=== PATIENT | female | born 1995 | race Caucasian/White ===

== ENCOUNTER 2017-03-21 19:38 | Outpatient (CLI) | payer OTHER ==
--- NOTE | 2017-03-21 21:29 | Ultrasound Preliminary Report ---
Exam: US Pelvic w/Transvaginal IMPRESSION: Normal pelvic ultrasound. No ovarian cysts. No free fluid in the pelvis. Blood flow prese nt in both ovaries on Doppler. [facility] SITE ID: [id number]
--- NOTE | 2017-03-21 21:31 | Ultrasound Report ---
EXAM: PELVIC ULTRASOUND EXAM DATE: 03/21/2017 09:02 PM. CLINICAL HISTORY: R PELVIC PX HX OVARIAN CYST, SUSPECT RUPTURE. COMPARISON: None. TECHNIQUE: Realtime transabdominal pelvic scan performed to identify the uterus and adnexa and as an overview of other pelvic structures, followed by transvaginal scan to provide greater detail of the u terus and adnexa, with static image documentation. FINDINGS: Uterus: 5.3 x 2.4 x 3.7 cm, volume 25 cc. Anteverted position. Normal overall size and echotexture. Masses: None. Endometrium: 5 mm. Normal. Cervix: Unremarkable. Right Ovary: 3.2 x 1.7 x 2.4 cm, volume 7 cc. Normal echotexture and blood flow. Left Ovary: 2.8 x 2.2 x 2.0 cm, volume 6.7 cc. Normal echotexture and blood flow. Free Fluid: None. Other: None. IMPRESSION: Normal pelvic ultrasound. No ovarian cysts. No free fluid in the pelvis. Blood flow prese nt in both ovaries on Doppler. [facility] Referring Provider Line: [phone] SITE ID: [id number]
== END 2017-03-21 19:39 | disposition home or self-care (01) ==
LOC: DI 19:38
PROVIDERS: ATTEND Physician Assistant
DX: R10.2 Pelvic and perineal pain (principal)
CPT/HCPCS: 76830; 76856

== ENCOUNTER 2017-06-22 08:24 | Emergency (ER) | payer OTHER ==
--- NOTE | 2017-06-22 08:40 | ED Physician Documentation ---
PD HPI FEMALE - Stated complaint Stated Complaint: RT SIDE PX - Chief complaint Chief Complaint: Abd Pain - History obtained from History obtained from: Patient - History of Present Illness Timing - onset: Today Timing - duration: Hours Timing - details: Abrupt onset, Still present Associated symptoms: Vaginal discharge (she says she has common mild discharge, no change in it.). No: Fever, Back pain, Vaginal bleeding, Genital sore/lesion Contributing factors: No: Similar symptoms before: Diagnosis (ovarian pains and ovarian cysts in the past , with PCOS.) Recently seen: Not recently seen Review of Systems Constitutional: denies: Fever, Chills Throat: denies: Sore throat Cardiac: denies: Chest pain / pressure Respiratory: denies: Dyspnea GI: denies: Nausea, Vomiting, Diarrhea : reports: Discharge (commonly mild, no recent change in it), LMP (couple weeks ago), Irregular menses (intermediate card tender). 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 : None - Present Medications Home Medications: Ambulatory Orders Medication Instructions Recorded Confirmed Naproxen [Naprosyn] 500 mg PO BID PRN #20 tablet 06/22/17 Tramadol HCl 50 mg PO Q6H PRN #15 tablet 06/22/17 - Allergies Allergies/Adverse Reactions: Allergies Allergy/AdvReac Type Severity Reaction Status Date / Time Iodinated Contrast- Oral and Allergy Unknown Verified 06/22/17 08:38 IV Dye iodine Allergy Unknown Verified 06/22/17 08:38 latex Allergy Unknown Verified 06/22/17 08:38 Sulfa (Sulfonamide Allergy Unknown Verified 06/22/17 08:38 Antibiotics) PD ED PE NORMAL - Vitals Vital signs reviewed: Yes - General General: Alert and oriented X 3, No acute distress, Well developed/nourished - HEENT HEENT: Pharynx benign - Neck Neck: Supple, no meningeal sign, No adenopathy - Cardiac Cardiac: RRR, No murmur - Respiratory Respiratory: Clear bilaterally - Abdomen Abdomen: Normal bowel sounds, Soft, Non distended, No organomegaly, Other (some tenderness RLQ without guarding, percussion nor rebound tenderness. ) - Female Female : Deferred - Rectal Rectal: Deferred - Back Back: No CVA TTP - Derm Derm: Normal color, Warm and dry, No rash - Neuro Neuro: Alert and oriented X 3, No motor deficit, Normal speech Results - Vitals Vitals: Vital Signs - 24 hr 06/22/17 06/22/17 10:06 10:58 Heart Rate 56 L 72 Respiratory 16 15 Rate Blood Pressure 100/66 104/72 O2 Saturation 100 99 Oxygen O2 Source Room air - Labs Labs: Laboratory Tests 06/22/17 06/22/17 06/22/17 08:35 09:15 09:15 WBC 7.3 RBC 5.10 Hgb 14.3 Hct 42.3 MCV 82.9 MCH 28.1 MCHC 33.9 RDW 12.7 Plt Count 264 MPV 8.0 Neut # 4.5 Lymph # 2.2 [place] # 0.4 Eos # 0.1 Baso # 0.1 Absolute Nucleated RBC 0.00 Nucleated RBCs 0.0 Sodium 139 Potassium 3.9 Chloride 106 Carbon Dioxide 26 Anion Gap 7.0 BUN 25 H Creatinine 0.9 Estimated GFR (MDRD) 80 L Glucose 101 H Calcium 9.6 Total Bilirubin 0.5 AST 23 ALT 27 Alkaline Phosphatase 59 Total Protein 8.3 H Albumin 4.4 Globulin 3.9 Albumin/Globulin Ratio 1.1 Lipase 29 Urine Color YELLOW Urine Clarity CLEAR Urine pH 6.0 Ur Specific [place] 1.025 Urine Protein NEGATIVE Urine Glucose (UA) NEGATIVE Urine Ketones NEGATIVE Urine Occult Blood NEGATIVE Urine Nitrite NEGATIVE Urine Bilirubin NEGATIVE Urine Urobilinogen 0.2 (NORMAL) Ur Leukocyte Esterase NEGATIVE Ur Microscopic Review NOT INDICATED Urine Culture Comments NOT INDICATED Urine HCG, Qual NEGATIVE PD MEDICAL DECISION MAKING - ED course Complexity details: reviewed results (U/S showed normal pelvis. WBC and UA are normal. Appendix not visualized on U/S. Talked with patient about watching symptoms for the day vs. further testing such as CT. She says she has had similar pains with ovarian/cysts in the past and feels it is that (ovarian, since no cysts). She would prefer not CT and see how symptoms do for the day. ) , considered differential, d/w patient Departure - Departure Disposition: 01 Home, Self Care Clinical Impression: Right lower quadrant abdominal pain Condition: Stable Record reviewed to determine appropriate education?: Yes Instructions: ED Abdominal Pain Appendx Poss Follow-Up: Lorie Thornton ARNP [Primary Care Provider] - Prescriptions: Naproxen [Naprosyn] 500 mg PO BID PRN #20 tablet PRN Reason: Pain Tramadol HCl 50 mg PO Q6H PRN #15 tablet PRN Reason: Pain Comments: Drink lots of fluids. Naproxen 500 mg twice daily for the next 5 or 6 days and then as needed. In addition to that, you can use Tylenol or tramadol if needed for pain. At this point your labs are looking okay so this may be ovarian pain without cysts. However if you have increasing pain, fevers, nausea, diarrhea or bloody stool or other concerns then it may be an early presentation of something more yet to develop. Return if worsening symptoms. Discharge Date/Time: 06/22/17 11:03
[2017-06-22 08:46] LABS: BILIRUBIN,URINE NEGATIVE (NEGATIVE)
[2017-06-22 08:48] LABS: HCG UR QUAL NEGATIVE; UA CHARGE (STRIP ONLY) YES; UR CULTURE IF IND NOT INDICATED
[2017-06-22] MEDS ORDERED: ONDANSETRON ODT 4 MG TABLET TL STA (08:56)
[2017-06-22] MEDS ORDERED: HYDROcod/ACETAM 5/325 MG TABLET PO STA (08:56)
[2017-06-22] MEDS ORDERED: IBUPROFEN 600 MG TABLET PO STA (08:56)
[2017-06-22] MEDS ORDERED: HYDROcod/ACETAM 5/325 MG TABLET ONE (09:10)
[2017-06-22] MEDS ORDERED: IBUPROFEN 600 MG TABLET PO ONE (09:11)
[2017-06-22] MEDS ORDERED: ONDANSETRON ODT 4 MG TABLET ONE (09:11)
[2017-06-22 09:37] LABS: BASOPHILS # (AUTO) 0.1 10^3/uL (0.0-0.1); BASOPHILS % (AUTO) 0.8 %; EOSINOPHILS # (AUTO) 0.1 10^3/uL (0.0-0.7); EOSINOPHILS % (AUTO) 1.8 %; HCT - HEMATOCRIT 42.3 % (37.0-47.0); HGB - HEMOGLOBIN 14.3 g/dL (12.0-16.0); LYMPHOCYTES # (AUTO) 2.2 10^3/uL (1.5-3.5); LYMPHOCYTES % (AUTO) 29.9 %; MEAN CORPUSCULAR HEMOGLOBIN 28.1 pg (27.0-31.0); MEAN CORPUSCULAR HGB CONC 33.9 g/dL (32.0-36.0); MEAN CORPUSCULAR VOLUME 82.9 fL (81.0-99.0); MONOCYTES # (AUTO) 0.4 10^3/uL (0.0-1.0); NEUTROPHILS # (AUTO) 4.5 10^3/uL (1.5-6.6); NEUTROPHILS % (AUTO) 61.5 %; RED CELL DISTRIBUTION WIDTH 12.7 % (12.0-15.0); UNCORRECTED WHITE BLOOD COUNT 7.3 x10^3/uL; WHITE BLOOD COUNT 7.3 x10^3/uL (4.8-10.8)
[2017-06-22 09:45] LABS: ALBUMIN/GLOBULIN RATIO 1.1 (1.0-2.2); BILIRUBIN,TOTAL 0.5 mg/dL (0.2-1.0); CALCIUM 9.6 mg/dL (8.5-10.3); CREATININE 0.9 mg/dL (0.4-1.0); POTASSIUM 3.9 mmol/L (3.5-5.0); TOTAL PROTEIN 8.3 g/dL (6.7-8.2)
--- NOTE | 2017-06-22 10:18 | Ultrasound Preliminary Report ---
Exam: US Abdomen Limited IMPRESSION: Nonvisualized appendix. No focal abnormality demonstrated. [facility] SITE ID: [id number]
--- NOTE | 2017-06-22 10:20 | Ultrasound Preliminary Report ---
Exam: US Pel Non OB w/TV + Dop Ltd IMPRESSION: Normal pelvic ultrasound. [facility] SITE ID: [id number]
--- NOTE | 2017-06-22 10:21 | Ultrasound Report ---
EXAM: Limited abdominal/pelvic ultrasound EXAM DATE: 06/22/2017 10:13 AM. CLINICAL HISTORY: RLQ pain onset overnight; ? eval appendix. COMPARISON: None available. TECHNIQUE: Real-time scanning was performed of the right lower quadrant with static images obtained. FINDINGS: APPENDIX: Not seen ASSOCIATED FINDINGS: Lymph Nodes Seen: No Free Fluid/Complex Fluid Seen: No Thickened Bowel Wall Seen: No Other: None. IMPRESSION: Nonvisualized appendix. No focal abnormality demonstrated. [facility] Referring Provider Line: [phone] SITE ID: [id number]
--- NOTE | 2017-06-22 10:22 | Ultrasound Report ---
EXAM: PELVIC ULTRASOUND EXAM DATE: 06/22/2017 10:13 AM. CLINICAL HISTORY: RLQ abd pain overnight, abrupt onset. COMPARISON: 03/21/2017. TECHNIQUE: Realtime transabdominal pelvic scan performed to identify the uterus and adnexa and as an overview of other pelvic structures, followed by transvaginal scan to provide greater detail of the u terus and adnexa, with static image documentation. FINDINGS: Uterus: 5.2 x 2.5 x 3.2 cm, volume 22 cc. Retroverted position. Normal overall size and echotexture. Masses: None. Endometrium: 2 mm. Normal. Cervix: Unremarkable. Right Ovary: 3.6 x 2.3 x 2.4 cm, volume 10.4 cc. Normal echotexture and blood flow. Left Ovary: 3.8 x 1.9 x 2.5 cm, volume 9.4 cc. Normal echotexture and blood flow. Free Fluid: None. Other: None. IMPRESSION: Normal pelvic ultrasound. [facility] Referring Provider Line: [phone] SITE ID: [id number]
[2017-06-22 10:59] VITALS: BP 104/72
== END 2017-06-22 11:03 | disposition home or self-care (01) ==
LOC: ED 08:24
DX: R10.31 Right lower quadrant pain (principal)
CPT/HCPCS: 36415; 76705; 76830; 76856; 80053; 81003; 81025; 83690; 85025; 93976; 99283; A9270; Q0162; 81001; 87086

== ENCOUNTER 2017-11-18 22:37 | Emergency (ER) | payer OTHER ==
[2017-11-18 23:01] LABS: BILIRUBIN,URINE NEGATIVE (NEGATIVE); GLUCOSE, URINE (UA) NEGATIVE (NEGATIVE); KETONES,URINE (UA) NEGATIVE (NEGATIVE); LEUKOCYTE ESTERASE, URINE TRACE (NEGATIVE); NITRITE,URINE NEGATIVE (NEGATIVE); OCCULT BLOOD,URINE LARGE (NEGATIVE); PROTEIN,URINE TRACE mg/dL (NEGATIVE); UROBILINOGEN,URINE 0.2 (NORMAL) E.U./dL (NORMAL)
[2017-11-18 23:05] LABS: CLARITY,URINE BLOODY (CLEAR); HCG UR QUAL POSITIVE
[2017-11-18 23:11] LABS: WBC CLUMPS,URINE PRESENT
[2017-11-18 23:12] LABS: BACTERIA,URINE Few /HPF (None Seen); RBC,URINE TNTC /HPF (0-5); SQUAMOUS EPITHELIAL CELL,UR FEW Squamous (<= Few)
[2017-11-18 23:43] LABS: BASOPHILS # (AUTO) 0.1 10^3/uL (0.0-0.1); BASOPHILS % (AUTO) 0.7 %; EOSINOPHILS # (AUTO) 0.2 10^3/uL (0.0-0.7); EOSINOPHILS % (AUTO) 1.6 %; HGB - HEMOGLOBIN 15.3 g/dL (12.0-16.0); LYMPHOCYTES # (AUTO) 3.4 10^3/uL (1.5-3.5); MEAN CORPUSCULAR HEMOGLOBIN 27.8 pg (27.0-31.0); MEAN CORPUSCULAR HGB CONC 33.8 g/dL (32.0-36.0); MEAN CORPUSCULAR VOLUME 82.2 fL (81.0-99.0); MEAN PLATELET VOLUME 7.9 fL (7.9-10.8); MONOCYTES # (AUTO) 0.6 10^3/uL (0.0-1.0); MONOCYTES % (AUTO) 5.6 %; NEUTROPHILS # (AUTO) 6.1 10^3/uL (1.5-6.6); NEUTROPHILS % (AUTO) 59.1 %; PLT - PLATELET COUNT 290 10^3/uL (130-450); RED CELL DISTRIBUTION WIDTH 12.8 % (12.0-15.0); WHITE BLOOD COUNT 10.4 x10^3/uL (4.8-10.8)
[2017-11-18 23:59] LABS: ALBUMIN 4.4 g/dL (3.2-5.5); ALBUMIN/GLOBULIN RATIO 1.1 (1.0-2.2); BILIRUBIN,TOTAL 0.2 mg/dL (0.2-1.0); CALCIUM 9.8 mg/dL (8.5-10.3); CREATININE 0.8 mg/dL (0.4-1.0); TOTAL PROTEIN 8.4 g/dL (6.7-8.2)
--- NOTE | 2017-11-19 00:35 | Ultrasound Report ---
EXAM: FIRST TRIMESTER OBSTETRIC ULTRASOUND (Less than 11 weeks) EXAM DATE: 11/19/2017 12:23 AM. CLINICAL HISTORY: . Vaginal bleeding. LMP: 10/25/2017. COMPARISONS: None. TECHNIQUE: Transabdominal and transvaginal ultrasound examination with static image documentation. CLINICAL DATES: EGA 3 weeks 3 days with BRITANY 08/01/2018 based on LMP. ASSESSMENT: Gestational Sac: Not seen. Endometrial thickness 4 mm. Embryo: CRL not seen. Cardiac activity: Not seen. Yolk sac: Not seen. Amniotic fluid: Not seen. Early placenta: Not seen. Other: None. MATERNAL STRUCTURES: Uterus: Anteverted transabdominal, retroverted transvaginal. Unremarkable. Cervix: Closed. Right Ovary/Adnexa: Unremarkable. The ovary measures 2.4 x 2.7 x 2.2 cm, volume 7.3 cc. Left Ovary/Adnexa: Unremarkable. The ovary measures 3.7 x 1.6 x 2.3 cm, volume 7.0 cc. Free Fluid: None. Other: None. IMPRESSION: 1. No intrauterine or extra uterine gestation seen. Endometrial thickness normal at 4 mm. 2. Ovaries appear normal. No free fluid. [facility] Referring Provider Line: [phone] SITE ID: [id number]
--- NOTE | 2017-11-19 00:36 | Ultrasound Preliminary Report ---
Exam: US OB TRANSVAGINAL IMPRESSION: 1. No intrauterine or extra uterine gestation seen. Endometrial thickness normal at 4 mm. 2. Ovaries appear normal. No free fluid. [facility] SITE ID: [id number]
--- NOTE | 2017-11-19 00:47 | ED Physician Documentation ---
PD HPI FEMALE - Stated complaint Stated Complaint: FEMALE - Chief complaint Chief Complaint: Abd Pain - History obtained from History obtained from: Patient, Family - History of Present Illness Timing - onset: Yesterday Timing - details: Still present Associated symptoms: Vaginal bleeding Contributing factors: Similar symptoms before: Has not had sx before Recently seen: Not recently seen - Additional information Additional information: Patient is a 22 year old female with a history of pcos who is presenting to the emergency department for vaginal bleeding. patient states that she has used about 12 pads today. patient states that she took a home test that was positive. patient's lmp was three weeks ago. Review of Systems Constitutional: denies: Fever, Chills Eyes: denies: Loss of vision, Decreased vision Ears: reports: Reviewed and negative Nose: reports: Reviewed and negative Throat: reports: Reviewed and negative Cardiac: reports: Reviewed and negative Respiratory: denies: Dyspnea, Cough GI: reports: Abdominal Pain, Nausea : reports: Vaginal bleeding Skin: denies: Rash, Lesions Musculoskeletal: denies: Neck pain, Back pain Neurologic: denies: Generalized weakness, Focal weakness, Near syncope, Syncope Immunocompromised: denies: Immunocompromised PD PAST MEDICAL HISTORY - Past Medical History Past Medical History: Yes Cardiovascular: None Respiratory: None Neuro: None Endocrine/Autoimmune: None GI: None 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 : None HEENT: None Psych: None Musculoskeletal: None Derm: None - Present Medications Home Medications: Ambulatory Orders Medication Instructions Recorded Confirmed metFORMIN [Glucophage] 500 mg PO BID 11/18/17 11/18/17 - Allergies Allergies/Adverse Reactions: Allergies Allergy/AdvReac Type Severity Reaction Status Date / Time Iodinated Contrast- Oral and Allergy Unknown Verified 11/18/17 22:46 IV Dye iodine Allergy Unknown Verified 11/18/17 22:46 latex Allergy Unknown Verified 11/18/17 22:46 Sulfa (Sulfonamide Allergy Unknown Verified 11/18/17 22:46 Antibiotics) - Social History Does the pt smoke?: No Smoking Status: Never smoker Does the pt drink ETOH?: No Does the pt have substance abuse?: No - Immunizations Immunizations are current?: Yes - POLST Patient has POLST: No PD ED PE NORMAL - Vitals Vital signs reviewed: Yes - General General: Alert and oriented X 3, No acute distress, Well developed/nourished - HEENT HEENT: Atraumatic, PERRL - Neck Neck: Supple, no meningeal sign - Cardiac Cardiac: RRR, No murmur - Respiratory Respiratory: No respiratory distress, Clear bilaterally - Abdomen Abdomen: Soft, Non tender, Non distended - Female Female : Deferred - Derm Derm: Normal color, Warm and dry, No rash - Extremities Extremities: No deformity, Normal ROM s pain, No calf tenderness / cord - Neuro Neuro: Alert and oriented X 3, No motor deficit, No sensory deficit, Normal speech Results - Vitals Vitals: Vital Signs - 24 hr 11/18/17 11/18/17 22:42 23:41 Temperature 36.7 C Heart Rate 97 Respiratory 20 17 Rate Blood Pressure 118/75 O2 Saturation 98 Oxygen O2 Source Room air - Labs Labs: Laboratory Tests 11/18/17 11/18/17 11/18/17 22:50 23:22 23:22 WBC 10.4 RBC 5.50 H Hgb 15.3 Hct 45.2 MCV 82.2 MCH 27.8 MCHC 33.8 RDW 12.8 Plt Count 290 MPV 7.9 Neut # 6.1 Lymph # 3.4 [place] # 0.6 Eos # 0.2 Baso # 0.1 Absolute Nucleated RBC 0.00 Nucleated RBC % 0.0 Sodium 136 Potassium 3.5 Chloride 100 L Carbon Dioxide 24 Anion Gap 12.0 BUN 17 Creatinine 0.8 Estimated GFR (MDRD) 91 Glucose 99 Calcium 9.8 Total Bilirubin 0.2 AST 19 ALT 24 Alkaline Phosphatase 79 Total Protein 8.4 H Albumin 4.4 Globulin 4.0 Albumin/Globulin Ratio 1.1 Lipase 36 HCG, Quant Urine Color RED/BLOODY Urine Clarity BLOODY Urine pH 7.0 Ur Specific [place] 1.015 Urine Protein TRACE Urine Glucose (UA) NEGATIVE Urine Ketones NEGATIVE Urine Occult Blood LARGE H Urine Nitrite NEGATIVE Urine Bilirubin NEGATIVE Urine Urobilinogen 0.2 (NORMAL) Ur Leukocyte Esterase TRACE H Urine RBC TNTC H Urine WBC >25 H Urine WBC Clumps PRESENT Ur Squamous Epith Cells FEW Squamous Urine Bacteria Few Ur Microscopic Review INDICATED Urine Culture Comments INDICATED Urine HCG, Qual POSITIVE Blood Type 11/18/17 11/18/17 23:22 23:22 WBC RBC Hgb Hct MCV MCH MCHC RDW Plt Count MPV Neut # Lymph # [place] # Eos # Baso # Absolute Nucleated RBC Nucleated RBC % Sodium Potassium Chloride Carbon Dioxide Anion Gap BUN Creatinine Estimated GFR (MDRD) Glucose Calcium Total Bilirubin AST ALT Alkaline Phosphatase Total Protein Albumin Globulin Albumin/Globulin Ratio Lipase HCG, Quant 0.94 Urine Color Urine Clarity Urine pH Ur Specific [place] Urine Protein Urine Glucose (UA) Urine Ketones Urine Occult Blood Urine Nitrite Urine Bilirubin Urine Urobilinogen Ur Leukocyte Esterase Urine RBC Urine WBC Urine WBC Clumps Ur Squamous Epith Cells Urine Bacteria Ur Microscopic Review Urine Culture Comments Urine HCG, Qual Blood Type O POSITIVE - Rads (name of study) pelvic ultrasound Radiology: Final report received (no intrauterine or extrauterine ) PD MEDICAL DECISION MAKING - ED course Complexity details: reviewed old records, reviewed results, re-evaluated patient , considered differential, d/w patient, d/w family ED course: Patient was seen and examined at bedside. patient was well appearing and in no distress. iv access was gained and labs were drawn. patientn was sent for imaging. when patient returned the results were reviewed. patient likely had a miscarriage. patient's vital signs and hemoglobin were within normal limits, and ultrasound showed no abnormality. patient required no further work up and was stable for discharge with outpatient follow up. Departure - Departure Disposition: 01 Home, Self Care Clinical Impression: Miscarriage Condition: Good Instructions: ED Miscarriage Completed Follow-Up: Lorie Thornton ARNP [Primary Care Provider] - Within 3 Days Comments: Your diagnostics today were within normal limits. Your symptoms are likely a miscarriage. You should still go to the appointment with your OB on . You may return to the emergency department at any time for dizziness, lightheadedness or syncope.
[2017-11-19 01:40] VITALS: BP 106/72
== END 2017-11-19 01:30 | disposition home or self-care (01) ==
LOC: ED 22:37
DX: O03.9 Complete or unspecified spontaneous abortion without complication (principal)
CPT/HCPCS: 36415; 76801; 76817; 80053; 81001; 81003; 81025; 83690; 84702; 85025; 86900; 86901; 87086; 99283; 99284

== ENCOUNTER 2018-02-16 01:48 | Outpatient (CLI) | payer OTHER | END 2018-02-16 01:49 | disposition critical access hospital (66) | LOC: EMS 01:48 | PROVIDERS: ATTEND Surgery | DX: R07.89 Other chest pain (principal); R06.02 Shortness of breath; R11.0 Nausea | CPT/HCPCS: A0425; A0427 ==

== ENCOUNTER 2018-02-16 02:08 | Emergency (ER) | payer OTHER ==
[2018-02-16] MEDS ORDERED: LORazepam 2 MG/ML VIAL IVP STA (02:18)
[2018-02-16] MEDS ORDERED: SODIUM CHLORIDE 0.9% 1,000 ML IV ONE (02:18)
[2018-02-16 02:38] LABS: BASOPHILS # (AUTO) 0.1 10^3/uL (0.0-0.1); BASOPHILS % (AUTO) 0.9 %; EOSINOPHILS # (AUTO) 0.2 10^3/uL (0.0-0.7); EOSINOPHILS % (AUTO) 1.5 %; HGB - HEMOGLOBIN 14.5 g/dL (12.0-16.0); LYMPHOCYTES # (AUTO) 3.5 10^3/uL (1.5-3.5); LYMPHOCYTES % (AUTO) 35.8 %; MEAN CORPUSCULAR HEMOGLOBIN 28.5 pg (27.0-31.0); MEAN CORPUSCULAR HGB CONC 34.7 g/dL (32.0-36.0); MEAN CORPUSCULAR VOLUME 82.2 fL (81.0-99.0); MEAN PLATELET VOLUME 8.1 fL (7.9-10.8); MONOCYTES # (AUTO) 0.8 10^3/uL (0.0-1.0); MONOCYTES % (AUTO) 8.4 %; NEUTROPHILS # (AUTO) 5.3 10^3/uL (1.5-6.6); NEUTROPHILS % (AUTO) 53.4 %; PLT - PLATELET COUNT 281 10^3/uL (130-450); RED BLOOD COUNT 5.09 10^6/uL (4.20-5.40); RED CELL DISTRIBUTION WIDTH 12.9 % (12.0-15.0); WHITE BLOOD COUNT 9.9 x10^3/uL (4.8-10.8)
[2018-02-16 02:44] LABS: BILIRUBIN,URINE NEGATIVE (NEGATIVE); GLUCOSE, URINE (UA) NEGATIVE (NEGATIVE); KETONES,URINE (UA) NEGATIVE (NEGATIVE); LEUKOCYTE ESTERASE, URINE MODERATE (NEGATIVE); NITRITE,URINE NEGATIVE (NEGATIVE); OCCULT BLOOD,URINE NEGATIVE (NEGATIVE); PH,URINE 7.5 PH (5.0-7.5); PROTEIN,URINE NEGATIVE (NEGATIVE); UROBILINOGEN,URINE 0.2 (NORMAL) E.U./dL (NORMAL)
[2018-02-16 02:46] LABS: CLARITY,URINE SL. CLOUDY (CLEAR); HCG UR QUAL NEGATIVE
[2018-02-16 02:55] LABS: BACTERIA,URINE Few /HPF (None Seen); RBC,URINE 0-5 /HPF (0-5); SQUAMOUS EPITHELIAL CELL,UR MANY Squamous (<= Few)
[2018-02-16 02:58] LABS: ALBUMIN 4.5 g/dL (3.2-5.5); ALBUMIN/GLOBULIN RATIO 1.3 (1.0-2.2); BILIRUBIN,TOTAL 0.5 mg/dL (0.2-1.0); CALCIUM 9.5 mg/dL (8.5-10.3); CREATININE 0.9 mg/dL (0.4-1.0); MAGNESIUM 1.9 mg/dL (1.7-2.8); TOTAL PROTEIN 7.9 g/dL (6.7-8.2)
[2018-02-16] MEDS ORDERED: NEUTRA-PHOS 250 MG TABLET PO STA (03:03)
--- NOTE | 2018-02-16 03:03 | ED Physician Documentation ---
PD HPI CHEST PAIN - Stated complaint Stated Complaint: CP, N/V - Chief complaint Chief Complaint: Cardiac - History obtained from History obtained from: Patient, EMS - History of Present Illness Timing - onset: Today Timing - onset during: Rest Timing - details: Abrupt onset, Intermittant Quality: Pressure, Tightness Location: Substernal Improved by: Nothing Worsened by: Palpation. No: Exertion, Inspiration, Eating, Movement Associated symptoms: No: Shortness of air, Diaphoresis Similar symptoms before: Has not had sx before Recently seen: Not recently seen - Additional information Additional information: Patient is a 22 year old female with a history of pcos who is presenting to the emergency department for chest pain. According to patient and ems patient has been on diet pills and has been working out a lot lately. Patient called ems tonight because she had sharp chest pain and spasms of her hand. Review of Systems Constitutional: denies: Fever, Chills Eyes: reports: Reviewed and negative Ears: reports: Reviewed and negative Nose: reports: Reviewed and negative Cardiac: reports: Chest pain / pressure, Palpitations. denies: Pedal edema, Calf pain Respiratory: denies: Cough GI: reports: Nausea. 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 : None HEENT: None Psych: None Musculoskeletal: None Derm: None - Past Surgical History Past Surgical History: Yes - Present Medications Home Medications: Ambulatory Orders Medication Instructions Recorded Confirmed metFORMIN [Glucophage] 500 mg PO BID 11/18/17 11/18/17 Ciprofloxacin HCl [Cipro] 250 mg PO BID #5 tablet 02/16/18 - Allergies Allergies/Adverse Reactions: Allergies Allergy/AdvReac Type Severity Reaction Status Date / Time Iodinated Contrast- Oral and Allergy Unknown Verified 02/16/18 02:18 IV Dye iodine Allergy Unknown Verified 02/16/18 02:18 latex Allergy Unknown Verified 02/16/18 02:18 Sulfa (Sulfonamide Allergy Unknown Verified 02/16/18 02:18 Antibiotics) - Social History Does the pt smoke?: No Smoking Status: Never smoker Does the pt drink ETOH?: No Does the pt have substance abuse?: No - Immunizations Immunizations are current?: Yes - POLST Patient has POLST: No PD ED PE NORMAL - Vitals Vital signs reviewed: Yes - General General: Alert and oriented X 3 - HEENT HEENT: Atraumatic, PERRL - Neck Neck: Supple, no meningeal sign - Cardiac Cardiac: RRR, No murmur - Respiratory Respiratory: No respiratory distress, Clear bilaterally - Abdomen Abdomen: Soft, Non tender, Non distended - Derm Derm: Normal color, Warm and dry, No rash - Extremities Extremities: No deformity, No calf tenderness / cord - Neuro Neuro: Alert and oriented X 3 PD ED PE EXPANDED - General General: Alert, Anxious - HEENT HEENT: Dry mucous membranes - Respiratory Respiratory: Other (hyperventilating) Results - Vitals Vitals: Vital Signs - 24 hr 02/16/18 02/16/18 02/16/18 02:10 02:12 02:31 Temperature 36.6 C Heart Rate 88 83 Respiratory 22 20 Rate Blood Pressure 133/62 H 119/70 Blood Pressure 105/63 [Left] Blood Pressure 133/62 H [Right] O2 Saturation 100 100 02/16/18 02/16/18 02:41 03:06 Temperature Heart Rate 62 74 Respiratory 17 15 Rate Blood Pressure 119/70 126/84 H Blood Pressure [Left] Blood Pressure [Right] O2 Saturation 100 99 Oxygen O2 Source Room air - EKG (time done) 0213 Rate: Rate (enter#) (93) Rhythm: NSR [place]: Normal Intervals: Normal IA QRS: Normal Ischemia: Normal ST segments Compare to prior EKG: Old EKG unavailable - Labs Labs: Laboratory Tests 02/16/18 02/16/18 02/16/18 02:24 02:30 02:30 WBC 9.9 RBC 5.09 Hgb 14.5 Hct 41.9 MCV 82.2 MCH 28.5 MCHC 34.7 RDW 12.9 Plt Count 281 MPV 8.1 Neut # 5.3 Lymph # 3.5 [place] # 0.8 Eos # 0.2 Baso # 0.1 Absolute Nucleated RBC 0.01 Nucleated RBC % 0.1 Sodium 137 Potassium 3.3 L Chloride 104 Carbon Dioxide 23 Anion Gap 10.0 BUN 18 Creatinine 0.9 Estimated GFR (MDRD) 79 L Glucose 110 H Calcium 9.5 Phosphorus 2.0 L Magnesium 1.9 Total Bilirubin 0.5 AST 35 ALT 34 Alkaline Phosphatase 60 Total Creatine Kinase 883 H Troponin I Total Protein 7.9 Albumin 4.5 Globulin 3.4 Albumin/Globulin Ratio 1.3 Lipase 18 L Urine Color YELLOW Urine Clarity SL. CLOUDY Urine pH 7.5 Ur Specific [place] 1.020 Urine Protein NEGATIVE Urine Glucose (UA) NEGATIVE Urine Ketones NEGATIVE Urine Occult Blood NEGATIVE Urine Nitrite NEGATIVE Urine Bilirubin NEGATIVE Urine Urobilinogen 0.2 (NORMAL) Ur Leukocyte Esterase MODERATE H Urine RBC 0-5 Urine WBC 6-10 H Ur Squamous Epith Cells MANY Squamous H Urine Bacteria Few Ur Microscopic Review INDICATED Urine Culture Comments NOT INDICATED Urine HCG, Qual NEGATIVE 02/16/18 02:30 WBC RBC Hgb Hct MCV MCH MCHC RDW Plt Count MPV Neut # Lymph # [place] # Eos # Baso # Absolute Nucleated RBC Nucleated RBC % Sodium Potassium Chloride Carbon Dioxide Anion Gap BUN Creatinine Estimated GFR (MDRD) Glucose Calcium Phosphorus Magnesium Total Bilirubin AST ALT Alkaline Phosphatase Total Creatine Kinase Troponin I < 0.04 Total Protein Albumin Globulin Albumin/Globulin Ratio Lipase Urine Color Urine Clarity Urine pH Ur Specific [place] Urine Protein Urine Glucose (UA) Urine Ketones Urine Occult Blood Urine Nitrite Urine Bilirubin Urine Urobilinogen Ur Leukocyte Esterase Urine RBC Urine WBC Ur Squamous Epith Cells Urine Bacteria Ur Microscopic Review Urine Culture Comments Urine HCG, Qual - Rads (name of study) chest x-ray Radiology: Final report received (normal) PD MEDICAL DECISION MAKING - ED course Complexity details: reviewed old records, reviewed results, re-evaluated patient , considered differential, d/w patient, d/w family ED course: Patient was seen and examined at bedside. ekg was performed and it was normal sinus. iv access was gained and labs were drawn. patient was treated with ativan 1mg and ns bolus. urine was collected. chest x-ray was performed and was within normal limits. patient had findings consistent with UTI and when she was asked she stated she had increased frequency. Patient was started on cipro 250mg. patient's HEART score, and PERC score was 0. Patient required no further work up and was stable for discharge with outpatient follow up. Departure - Departure Disposition: 01 Home, Self Care Clinical Impression: Panic attack, Dehydration, Urinary tract infection Condition: Good Instructions: ED UTI Cystitis Female Follow-Up: primary,care provider [Other] - Within 3 Days Prescriptions: Ciprofloxacin HCl [Cipro] 250 mg PO BID #5 tablet Comments: Your diagnostics today were within normal limits aside from a urinary tract infection. Your symptoms were likely caused by a couple of things. You were likely a little dehydrated and being on the weight loss pill elevated your heart rate. That lead to a panic attack causing the hyperventilation and other symptoms. You should make sure you stay well hydrated and have a discussion with your doctor about if these supplements are good for you. You should stay well hydrated with water and electrolyte solution. You were started on cipro for a uti. you will be on it twice a day for three days. You can return to the emergency department at any time for new, worsening or uncontrollable symptoms.
[2018-02-16] MEDS ORDERED: CIPROFLOXACIN 250 MG TABLET PO STA (03:14)
--- NOTE | 2018-02-16 03:18 | XRAY Report ---
EXAM: CHEST RADIOGRAPHY EXAM DATE: 02/16/2018 03:07 AM. CLINICAL HISTORY: Chest Pain. COMPARISON: None. TECHNIQUE: 1 view. FINDINGS: Lungs/Pleura: No focal opacities evident. No pleural effusion. No pneumothorax. Mediastinum: Within exam limitations, the cardiomediastinal contour is normal. Other: None. IMPRESSION: Normal single view chest. [facility] Referring Provider Line: [phone] SITE ID: [id number]
[2018-02-16 03:35] VITALS: BP 127/68
== END 2018-02-16 03:34 | disposition home or self-care (01) ==
LOC: EDUNIT# → ED 02:08
DX: E86.0 Dehydration (principal); F41.0 Panic disorder [episodic paroxysmal anxiety]; N39.0 Urinary tract infection, site not specified; E28.2 Polycystic ovarian syndrome; J45.909 Unspecified asthma, uncomplicated
CPT/HCPCS: 36415; 71045; 80053; 81001; 81025; 82550; 83690; 83735; 84100; 84484; 85025; 93005; 96361; 96374; 99284; A9270; J2060; 81003; 87086

== ENCOUNTER 2018-05-24 19:45 | Emergency (ER) | payer OTHER ==
[2018-05-24 19:51] VITALS: BP 122/80
[2018-05-24] MEDS ORDERED: BUFFERED LIDOCAINE 10 ML SYRINGE SUBQ STA (19:56)
--- NOTE | 2018-05-24 19:58 | ED Physician Documentation ---
PD HPI SKIN - Stated complaint Stated Complaint: FEMALE - Chief complaint Chief Complaint: Wound - History obtained from History obtained from: Patient - History of Present Illness Timing - onset: Today (She developed painful swelling on the left side of her groin which she thinks is a Bartholin's cyst starting today. She has never had one before. 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 : None HEENT: None Psych: None Musculoskeletal: None Derm: None - Past Surgical History Past Surgical History: Yes - Present Medications Home Medications: Ambulatory Orders Medication Instructions Recorded Confirmed metFORMIN [Glucophage] 500 mg PO BID 11/18/17 05/24/18 Amox/Clav 875/125 [Augmentin] 1 each PO Q12H #14 tablet 05/24/18 - Allergies Allergies/Adverse Reactions: Allergies Allergy/AdvReac Type Severity Reaction Status Date / Time Iodinated Contrast- Oral and Allergy Unknown Verified 05/24/18 19:52 IV Dye iodine Allergy Unknown Verified 05/24/18 19:52 latex Allergy Unknown Verified 05/24/18 19:52 Sulfa (Sulfonamide Allergy Unknown Verified 05/24/18 19:52 Antibiotics) - Social History Does the pt smoke?: No Smoking Status: Never smoker Does the pt drink ETOH?: No Does the pt have substance abuse?: No - Immunizations Immunizations are current?: Yes - POLST Patient has POLST: No PD ED PE NORMAL - Vitals Vital signs reviewed: Yes - General General: Alert and oriented X 3, No acute distress - Female 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 It was quite small and did not need to be packed.) - Neuro Neuro: Alert and oriented X 3, Normal speech - Psych Psych: Normal mood, Normal affect Results - Vitals Vitals: Vital Signs - 24 hr 05/24/18 19:49 Temperature 36.7 C Heart Rate 98 Respiratory 18 Rate Blood Pressure 122/80 O2 Saturation 99 Oxygen O2 Source Room air Procedures - Abscess I&D (location) L labia Preparation: Alcohol, Lidocaine 1% Incision: Incised with scalpel, Purulent drainage, Loculations broken. No: Irrigated, Packed Other: Pt tolerated well, Dressing applied, Antibiotic prescribed PD MEDICAL DECISION MAKING - Sepsis Event Vital Signs: Vital Signs - 24 hr 05/24/18 19:49 Temperature 36.7 C Heart Rate 98 Respiratory 18 Rate Blood Pressure 122/80 O2 Saturation 99 Oxygen O2 Source Room air Departure - Departure Disposition: Home, Self Care Clinical Impression: Left genital labial abscess Condition: Good Record reviewed to determine appropriate education?: Yes Instructions: ED Abscess IandD Prescriptions: Amox/Clav 875/125 [Augmentin] 1 each PO Q12H #14 tablet Comments: Call your doctor to arrange a follow-up appointment, make the next available appointment. In the interim, return anytime if worse or if new symptoms develop.
[2018-05-24] MEDS ORDERED: AMOX/CLAV 875 MG/125 MG TABLET PO STA (20:10)
== END 2018-05-24 20:15 | disposition home or self-care (01) ==
LOC: ED 19:45
DX: N76.4 Abscess of vulva (principal)
CPT/HCPCS: 56405; 99283; A9270

== ENCOUNTER 2018-06-04 06:34 | Outpatient (CLI) | payer OTHER | END 2018-06-04 06:35 | disposition critical access hospital (66) | LOC: EMS 06:34 | PROVIDERS: ATTEND Surgery | DX: L50.9 Urticaria, unspecified (principal); R06.2 Wheezing | CPT/HCPCS: A0425; A0427 ==

== ENCOUNTER 2018-06-04 06:54 | Emergency (ER) | payer OTHER ==
[2018-06-04] MEDS ORDERED: DEXAMETHASONE 10 MG/ML VIAL IVP STA (06:57)
--- NOTE | 2018-06-04 07:29 | ED Physician Documentation ---
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 10 decadron as well pt doing better now otherwise well recently Review of Systems Constitutional: denies: Fever Cardiac: denies: Chest pain / pressure Respiratory: reports: Dyspnea GI: denies: Vomiting, Diarrhea : denies: Now EGA Skin: reports: Rash Immunocompromised: denies: Immunocompromised PD PAST MEDICAL HISTORY - Past Medical History Past Medical History: Yes Cardiovascular: None Respiratory: Asthma Endocrine/Autoimmune: None GI: None 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, Other : None HEENT: None Psych: None Musculoskeletal: None Derm: None Other Past Medical History: PCOS - Past Surgical History Past Surgical History: Yes - Present Medications Home Medications: Ambulatory Orders Medication Instructions Recorded Confirmed metFORMIN [Glucophage] 500 mg PO BID 11/18/17 05/24/18 Amox/Clav 875/125 [Augmentin] 1 each PO Q12H #14 tablet 05/24/18 Epinephrine [Epipen 2-Zeke] 0.3 mg IJ ONCE PRN #1 unit 06/04/18 Loratadine [Claritin] 10 mg PO DAILY #4 tablet 06/04/18 predniSONE [Deltasone] 60 mg PO DAILY 3 Days tablet 06/04/18 - Allergies Allergies/Adverse Reactions: Allergies Allergy/AdvReac Type Severity Reaction Status Date / Time Iodinated Contrast- Oral and Allergy Unknown Verified 06/04/18 07:03 IV Dye iodine Allergy Unknown Verified 06/04/18 07:03 latex Allergy Unknown Verified 06/04/18 07:03 shellfish derived Allergy Anaphylaxis Verified 06/04/18 07:03 Sulfa (Sulfonamide Allergy Unknown Verified 06/04/18 07:03 Antibiotics) - Social History Does the pt smoke?: No Smoking Status: Never smoker Does the pt drink ETOH?: No Does the pt have substance abuse?: No - Immunizations Immunizations are current?: Yes - POLST Patient has POLST: No PD ED PE NORMAL - Vitals Vital signs reviewed: Yes - General General: Alert and oriented X 3 - HEENT HEENT: PERRL, Other (no oral edema) - Neck Neck: Supple, no meningeal sign - Cardiac Cardiac: RRR - Respiratory Respiratory: No respiratory distress, Clear bilaterally, Other (no wheeze) - Abdomen Abdomen: Soft, Non tender - Derm Derm: No rash - Neuro Neuro: Alert and oriented X 3 Results - Vitals Vitals: Vital Signs - 24 hr 06/04/18 06:57 Temperature 36.7 C Heart Rate 106 H Respiratory 18 Rate Blood Pressure 117/94 H O2 Saturation 100 Oxygen O2 Source Room air PD MEDICAL DECISION MAKING - ED course ED course: pt sx have reslved when I saw her at the beginning of my day shift but she showed me a phone pic and she had facial hives and swelling after epi will obs 2 hr pt without recurrence of sx will dc - Sepsis Event Vital Signs: Vital Signs - 24 hr 06/04/18 06:57 Temperature 36.7 C Heart Rate 106 H Respiratory 18 Rate Blood Pressure 117/94 H O2 Saturation 100 Oxygen O2 Source Room air Departure - Departure Disposition: 01 Home, Self Care Clinical Impression: Anaphylaxis Qualifiers: Encounter type: initial encounter Qualified Code(s): T78.2XXA - Anaphylactic shock, unspecified, initial encounter Condition: Good Instructions: ED Anaphylaxis General Follow-Up: YUNIEL Fall [Provider Group] (to get your blood pressure rechecked ) Prescriptions: Epinephrine [Epipen 2-Zeke] 0.3 mg IJ ONCE PRN #1 unit PRN Reason: Anaphylaxis Loratadine [Claritin] 10 mg PO DAILY #4 tablet predniSONE [Deltasone] 60 mg PO DAILY 3 Days tablet Forms: Activity restrictions
[2018-06-04 08:55] VITALS: BP 107/66
== END 2018-06-04 09:11 | disposition home or self-care (01) ==
LOC: EDUNIT# → ED 06:54
DX: T78.2XXA Anaphylactic shock, unspecified, initial encounter (principal)
CPT/HCPCS: 96374; 99283

== ENCOUNTER 2018-07-31 19:48 | Emergency (ER) | payer OTHER ==
[2018-07-31 21:28] LABS: BILIRUBIN,URINE NEGATIVE (NEGATIVE); GLUCOSE, URINE (UA) NEGATIVE (NEGATIVE); KETONES,URINE (UA) NEGATIVE (NEGATIVE); LEUKOCYTE ESTERASE, URINE NEGATIVE (NEGATIVE); NITRITE,URINE NEGATIVE (NEGATIVE); OCCULT BLOOD,URINE NEGATIVE (NEGATIVE); PROTEIN,URINE NEGATIVE (NEGATIVE); UROBILINOGEN,URINE 0.2 (NORMAL) E.U./dL (NORMAL)
[2018-07-31 21:35] LABS: CLARITY,URINE CLEAR (CLEAR); HCG UR QUAL NEGATIVE
[2018-07-31 21:35] LABS: BASOPHILS # (AUTO) 0.1 10^3/uL (0.0-0.1); BASOPHILS % (AUTO) 0.5 %; EOSINOPHILS # (AUTO) 0.2 10^3/uL (0.0-0.7); EOSINOPHILS % (AUTO) 1.5 %; HGB - HEMOGLOBIN 15.4 g/dL (12.0-16.0); LYMPHOCYTES # (AUTO) 3.7 10^3/uL (1.5-3.5); LYMPHOCYTES % (AUTO) 35.3 %; MEAN CORPUSCULAR HEMOGLOBIN 28.6 pg (27.0-31.0); MEAN CORPUSCULAR HGB CONC 34.4 g/dL (32.0-36.0); MEAN CORPUSCULAR VOLUME 83.2 fL (81.0-99.0); MEAN PLATELET VOLUME 7.7 fL (7.9-10.8); MONOCYTES # (AUTO) 0.7 10^3/uL (0.0-1.0); MONOCYTES % (AUTO) 6.3 %; NEUTROPHILS # (AUTO) 5.8 10^3/uL (1.5-6.6); NEUTROPHILS % (AUTO) 56.4 %; PLT - PLATELET COUNT 283 10^3/uL (130-450); RED CELL DISTRIBUTION WIDTH 12.8 % (12.0-15.0); WHITE BLOOD COUNT 10.4 x10^3/uL (4.8-10.8)
[2018-07-31 21:50] LABS: ALBUMIN 5.1 g/dL (3.2-5.5); ALBUMIN/GLOBULIN RATIO 1.5 (1.0-2.2); BILIRUBIN,TOTAL 0.5 mg/dL (0.2-1.0); CREATININE 0.9 mg/dL (0.4-1.0); TOTAL PROTEIN 8.6 g/dL (6.7-8.2)
--- NOTE | 2018-07-31 21:54 | ED Physician Documentation ---
PD HPI ABD PAIN - Stated complaint Stated Complaint: V/DIARRHEA/ABD PX - Chief complaint Chief Complaint: Abd Pain - History obtained from History obtained from: Patient - History of Present Illness Timing - onset: Today Timing - details: Gradual onset Improved by: Other (nothing) Worsened by: Other (no exacerbating factors) Associated symptoms: Nausea, Vomiting, Diarrhea. No: Fever Similar symptoms before: Has not had sx before - Additional information Additional information: c/o nausea x few days, vomiting today. abd. 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, Other : None HEENT: None Psych: None Musculoskeletal: None Derm: None Other Past Medical History: PCOS - Past Surgical History Past Surgical History: Yes - Present Medications Home Medications: Ambulatory Orders Medication Instructions Recorded Confirmed metFORMIN [Glucophage] 500 mg PO BID 11/18/17 05/24/18 Amox/Clav 875/125 [Augmentin] 1 each PO Q12H #14 tablet 05/24/18 Epinephrine [Epipen 2-Zeke] 0.3 mg IJ ONCE PRN #1 unit 06/04/18 Loratadine [Claritin] 10 mg PO DAILY #4 tablet 06/04/18 predniSONE [Deltasone] 60 mg PO DAILY 3 Days tablet 06/04/18 Diphenoxylate/Atropine [Lomotil] 1 each PO QID PRN #14 tablet 07/31/18 Ondansetron Odt [Zofran] 4 mg TL Q6H PRN #14 tablet 07/31/18 - Allergies Allergies/Adverse Reactions: Allergies Allergy/AdvReac Type Severity Reaction Status Date / Time Iodinated Contrast- Oral and Allergy Unknown Verified 07/31/18 19:55 IV Dye iodine Allergy Unknown Verified 07/31/18 19:55 latex Allergy Unknown Verified 07/31/18 19:55 shellfish derived Allergy Anaphylaxis Verified 07/31/18 19:55 Sulfa (Sulfonamide Allergy Unknown Verified 07/31/18 19:55 Antibiotics) - Social History Does the pt smoke?: No Smoking Status: Never smoker Does the pt drink ETOH?: No Does the pt have substance abuse?: No - Immunizations Immunizations are current?: Yes - POLST Patient has POLST: No PD ED PE NORMAL - Vitals Vital signs reviewed: Yes - General General: Alert and oriented X 3, No acute distress, Well developed/nourished - HEENT HEENT: Moist mucous membranes - Cardiac Cardiac: RRR, No murmur - Respiratory Respiratory: No respiratory distress, Clear bilaterally - Abdomen Abdomen: Normal bowel sounds, Soft, Non tender, Non distended - Back Back: No CVA TTP - Extremities Extremities: No edema Results - Vitals Vitals: Oxygen O2 Source Room air - Labs Labs: Laboratory Tests 07/31/18 07/31/18 07/31/18 19:55 21:25 21:25 WBC 10.4 RBC 5.40 Hgb 15.4 Hct 44.9 MCV 83.2 MCH 28.6 MCHC 34.4 RDW 12.8 Plt Count 283 MPV 7.7 L Neut # (Auto) 5.8 Lymph # (Auto) 3.7 H [place] # (Auto) 0.7 Eos # (Auto) 0.2 Baso # (Auto) 0.1 Absolute Nucleated RBC 0.01 Nucleated RBC % 0.1 Sodium 138 Potassium 3.6 Chloride 105 Carbon Dioxide 24 Anion Gap 9.0 BUN 18 Creatinine 0.9 Estimated GFR (MDRD) 79 L Glucose 98 Calcium 10.0 Total Bilirubin 0.5 AST 23 ALT 26 Alkaline Phosphatase 67 Total Protein 8.6 H Albumin 5.1 Globulin 3.5 Albumin/Globulin Ratio 1.5 Lipase 42 Urine Color YELLOW Urine Clarity CLEAR Urine pH 6.0 Ur Specific [place] 1.015 Urine Protein NEGATIVE Urine Glucose (UA) NEGATIVE Urine Ketones NEGATIVE Urine Occult Blood NEGATIVE Urine Nitrite NEGATIVE Urine Bilirubin NEGATIVE Urine Urobilinogen 0.2 (NORMAL) Ur Leukocyte Esterase NEGATIVE Ur Microscopic Review NOT INDICATED Urine Culture Comments NOT INDICATED Urine HCG, Qual NEGATIVE PD MEDICAL DECISION MAKING - ED course Complexity details: reviewed results, re-evaluated patient, considered differential, d/w patient - Sepsis Event Vital Signs: Oxygen O2 Source Room air Departure - Departure Disposition: 01 Home, Self Care Clinical Impression: Abdominal pain, Gastroenteritis Condition: Good Instructions: ED Gastroenteritis Viral Follow-Up: WENDY ROSAS PA-C [Primary Care Provider] - Within 3 Days Prescriptions: Diphenoxylate/Atropine [Lomotil] 1 each PO QID PRN #14 tablet PRN Reason: Diarrhea Ondansetron Odt [Zofran] 4 mg TL Q6H PRN #14 tablet PRN Reason: Nausea / Vomiting Forms: Activity restrictions Discharge Date/Time: 07/31/18 23:47
[2018-07-31] MEDS ORDERED: SODIUM CHLORIDE 0.9% 1,000 ML IV STA (22:15)
[2018-07-31] MEDS ORDERED: ONDANSETRON 4 MG/2 ML VIAL IVP STA (22:15)
--- NOTE | 2018-07-31 22:52 | CT Report ---
Reason: RLQ pain, tenderness Procedure Date: 07/31/2018 Accession Number: [id number] / [id number] Procedure: CT - Abdomen/Pelvis W/O CPT Code: FULL RESULT: EXAM: CT ABDOMEN AND PELVIS EXAM DATE: 07/31/2018 10:42 PM. CLINICAL HISTORY: Right lower quadrant pain and tenderness for 4 days. Nausea. COMPARISONS: None. TECHNIQUE: Routine helical CT imaging was performed through the abdomen and pelvis. IV contrast: None. Enteric contrast: No. Reconstructions: Coronal and sagittal. In accordance with CT protocol optimization, one or more of the following dose reduction techniques were utilized for this exam: automated exposure control, adjustment of mA and/or KV based on patient size, or use of iterative reconstructive technique. FINDINGS: Lung Bases: Unremarkable. Liver: Normal. No masses. Gallbladder/Bile Ducts: Unremarkable. Spleen: Normal. Pancreas: Normal. Adrenal Glands: Normal. Kidneys: Normal. No masses or hydronephrosis. Peritoneal Cavity/Bowel: Normal. No free fluid, free air or adenopathy. No masses or acute inflammatory process. The appendix is well visualized and normal. Pelvic Organs: Normal. The bladder and visualized pelvic organs are within normal limits. Vasculature: No aneurysms or other significant abnormality. Bones: No significant abnormality. Other: None. IMPRESSION: Normal abdomen and pelvis CT. [facility]
[2018-07-31 23:42] VITALS: BP 109/55
== END 2018-07-31 23:47 | disposition home or self-care (01) ==
LOC: ED 19:48
DX: K52.9 Noninfective gastroenteritis and colitis, unspecified (principal)
CPT/HCPCS: 36415; 74176; 80053; 81001; 81003; 81025; 83690; 85025; 87086; 96361; 96374; 99283; 99284